=== PATIENT | female | born 1985 | race Caucasian/White ===

== ENCOUNTER 2016-11-19 03:10 | Inpatient (IN) | payer OTHER ==
[~2016-11-19] VITALS: Ht 167.6 cm; Wt 98.0 kg
[2016-11-19] MEDS ORDERED: METHYLERGONOVINE 0.2 MG/ML AMP IM PRN (03:30)
[2016-11-19] MEDS ORDERED: OXYTOCIN 20 UNITS/LR PREMIX 1,000 ML IV SCH (03:30)
[2016-11-19] MEDS ORDERED: OXYTOCIN 10 UNITS/ML VIAL IM SCH (03:30)
[2016-11-19] MEDS ORDERED: LIDOCAINE 1% 500 MG/50 ML VIAL INJ SCH (03:30)
[2016-11-19] MEDS ORDERED: FERR-193 PO (03:48)
[2016-11-19] MEDS ORDERED: PREN-546 PO (03:48)
[2016-11-19 04:09] LABS: BASOPHILS # (AUTO) 0.1 K/uL (0.00-0.22); BASOPHILS % (AUTO) 1.5 % (0.0-2.0); EOSINOPHILS # (AUTO) 0.1 K/uL (0-0.4); EOSINOPHILS % (AUTO) 1.3 % (0.0-4.0); HEMATOCRIT 34.7 % (36-48); HEMOGLOBIN 11.4 g/dL (12.0-16.0); LYMPHOCYTES # (AUTO) 2.5 K/uL (2.5-16.5); LYMPHOCYTES % (AUTO) 32.6 % (20.5-51.1); MEAN CORPUSCULAR HEMOGLOBIN 30 pg (27-31); MEAN CORPUSCULAR HGB CONC 33 g/dL (33-37); MEAN CORPUSCULAR VOLUME 92 fL (80-94); MONOCYTES # (AUTO) 0.7 K/uL (0.8-1.0); NEUTROPHILS # (AUTO) 4.4 K/uL (1.8-7.7); NEUTROPHILS % (AUTO) 55.6 % (42.2-75.2); PLATELET COUNT (AUTO) 184 K/uL (140-450); RED BLOOD CELL COUNT(AUTO) 3.79 MIL/uL (4.20-5.40); RED CELL DISTRIBUTION WIDTH 14.2 % (11.6-13.7); WHITE BLOOD COUNT (AUTO) 7.8 K/uL (4.8-10.8)
[2016-11-19 04:12] LABS: ANION GAP 13.7 (8-16); CARBON DIOXIDE 21.9 mmol/L (21-32); CREATININE 0.7 mg/dL (0.6-1.3); POTASSIUM 3.6 mmol/L (3.5-5.1)
[2016-11-19 04:18] LABS: ALBUMIN 2.8 g/dL (3.4-5.0); MAGNESIUM 1.8 mg/dL (1.8-2.4); TOTAL BILIRUBIN 0.3 mg/dL (0.0-1.0)
[2016-11-19] MEDS ORDERED: CARBOPROST 250 MCG/ML AMP IM SCH (04:20)
[2016-11-19] MEDS ORDERED: NALBUPHINE 10 MG/ML AMP IVP PRN (04:20)
[2016-11-19 04:22] VITALS: BP 121/76
[2016-11-19] MEDS ORDERED: TRA200 PO (04:25)
[2016-11-19] MEDS: LACTATED RINGERS 1,000 ML IV SCH ×2 (04:26→19:56)
[2016-11-19 04:32] LABS: APPEARANCE,URINE CLEAR (CLEAR); BILIRUBIN,URINE NEGATIVE (NEGATIVE); BLOOD, URINE NEGATIVE (NEGATIVE); COLOR,URINE YELLOW (YELLOW); LEUKOCYTE ESTERASE ,URINE NEGATIVE (NEGATIVE); NITRITE, URINE NEGATIVE (NEGATIVE); UGLUCOSE NEGATIVE (NEGATIVE)
[2016-11-19 04:48] LABS: RBC,URINE 0-5 (RARE) /HPF (0-5); WBC,URINE 0-5 (RARE) /HPF (0-5)
[2016-11-19] MEDS ORDERED: OXYTOCIN 20 UNITS/LR PREMIX 1,000 ML IV ONE (08:03)
--- NOTE | 2016-11-19 09:57 | NUR ---
PATIENT HAS BEEN SCREENED AND CATEGORIZED LOW NUTRITION RISK. PATIENT WILL BE SEEN WITHIN 7 DAYS OF ADMISSION. 11/25/[address]
[2016-11-19] MEDS ORDERED: ROPIVACAINE 0.2%/NS PREMIX 250 ML EPI ONE (10:49)
[2016-11-19] MEDS ORDERED: ACETAMINOPHEN EXTRA STRENGTH 500 MG TAB ONE (20:01)
[2016-11-19] MEDS: ACETAMINOPHEN EXTRA STRENGTH 500 MG TAB PO PRN (20:09)
[2016-11-19] MEDS: LABETALOL 200 MG TAB PO SCH (20:59)
[2016-11-19] MEDS ORDERED: LABETALOL 200 MG TAB ONE (21:04)
[2016-11-20] MEDS ORDERED: OXYTOCIN 20 UNITS/LR PREMIX 1,000 ML IV SCH ×2 (03:30→17:28)
[2016-11-20] MEDS ORDERED: ROPIVACAINE 0.2%/NS PREMIX 250 ML EPI ONE (08:36)
[2016-11-20] MEDS: ACETAMINOPHEN EXTRA STRENGTH 500 MG TAB PO PRN (08:44)
[2016-11-20] MEDS: LABETALOL 200 MG TAB PO SCH ×2 (08:44→21:54)
[2016-11-20] MEDS ORDERED: ACETAMINOPHEN EXTRA STRENGTH 500 MG TAB ONE (08:47)
[2016-11-20] MEDS ORDERED: LABETALOL 200 MG TAB ONE ×2 (08:47→21:59)
[2016-11-20] MEDS: LACTATED RINGERS 1,000 ML IV SCH (13:16)
[2016-11-20] MEDS ORDERED: AMPICILLIN 2,000 MG in NACL 0.9% 100 ML IV ONE (13:25)
[2016-11-20] MEDS ORDERED: AMPICILLIN 2,000 MG VIAL ONE (13:32)
[2016-11-20] MEDS ORDERED: OXYTOCIN 10 UNITS/ML VIAL ONE (15:25)
[2016-11-20] MEDS ORDERED: LIDOCAINE 1% 0 ML ONE (15:26)
[2016-11-20] MEDS ORDERED: ACETAMINOPHEN 325 MG TAB PO PRN (17:30)
[2016-11-20] MEDS ORDERED: MEASLES, MUMPS, AND RUBELLA 1 VIAL SQVAC PRN (17:30)
[2016-11-20] MEDS ORDERED: AMPICILLIN 1,000 MG in NACL 0.9% 50 ML IV SCH (18:00)
[2016-11-21 07:58] LABS: BASOPHILS # (AUTO) 0.3 K/uL (0.00-0.22); BASOPHILS % (AUTO) 2.9 % (0.0-2.0); EOSINOPHILS # (AUTO) 0.2 K/uL (0-0.4); EOSINOPHILS % (AUTO) 1.7 % (0.0-4.0); HEMATOCRIT 31.5 % (36-48); HEMOGLOBIN 10.1 g/dL (12.0-16.0); LYMPHOCYTES # (AUTO) 2.8 K/uL (2.5-16.5); LYMPHOCYTES % (AUTO) 29.4 % (20.5-51.1); MEAN CORPUSCULAR HEMOGLOBIN 30 pg (27-31); MEAN CORPUSCULAR HGB CONC 32 g/dL (33-37); MEAN CORPUSCULAR VOLUME 93 fL (80-94); MONOCYTES # (AUTO) 0.8 K/uL (0.8-1.0); MONOCYTES % (AUTO) 8.1 % (1.7-9.3); NEUTROPHILS # (AUTO) 5.3 K/uL (1.8-7.7); NEUTROPHILS % (AUTO) 57.9 % (42.2-75.2); PLATELET COUNT (AUTO) 166 K/uL (140-450); RED CELL DISTRIBUTION WIDTH 14.3 % (11.6-13.7); WHITE BLOOD COUNT (AUTO) 9.4 K/uL (4.8-10.8)
[2016-11-21] MEDS: LABETALOL 200 MG TAB PO SCH ×2 (09:06→20:12)
[2016-11-21] MEDS: BISACODYL 5 MG TABEC PO PRN ×2 (09:06→20:12)
[2016-11-21] MEDS: oxyCODONE/APAP 5/325 MG 1 TAB TAB PO PRN (20:13)
[2016-11-22] MEDS: oxyCODONE/APAP 5/325 MG 1 TAB TAB PO PRN (05:38)
[2016-11-22] MEDS: LABETALOL 200 MG TAB PO SCH (08:36)
[2016-11-22] MEDS ORDERED: ACET-2619 PO (15:17)
== END 2016-11-22 17:55 | disposition home or self-care (01) | DRG 560 ==
LOC: MLD 03:10 → MFCC 11-20 20:20
PROVIDERS: ADMIT Obstetrics & Gynecology; ATTEND Obstetrics & Gynecology
PROC: 10E0XZZ Delivery of Products of Conception, External Approach (ICD-10-PCS; 2016-11-20)
PROC: 00HU33Z Insertion of Infusion Device into Spinal Canal, Percutaneous Approach (ICD-10-PCS; 2016-11-20)
PROC: 3E0R3CZ (ICD-10-PCS; 2016-11-20)
PROC: 3E0234Z Introduction of Serum, Toxoid and Vaccine into Muscle, Percutaneous Approach (ICD-10-PCS; principal; 2016-11-21)
DX: O13.3 Gestational [pregnancy-induced] hypertension without significant proteinuria, third trimester (principal); O69.1XX0 Labor and delivery complicated by cord around neck, with compression, not applicable or unspecified; Z37.0 Single live birth; Z3A.38 38 weeks gestation of pregnancy; Z23 Encounter for immunization
CPT/HCPCS: 36415; 51702; 59409; 76815; 80053; 81001; 83735; 85025; 85384; 85610; 85730; 86592; 86886; 86900; 86901; 90715; J0290; J2001; J2590; J2795; J7120; Q0092

== ENCOUNTER 2017-11-03 18:33 | Inpatient (IN) | payer OTHER ==
[~2017-11-03] VITALS: Ht 165.1 cm; Wt 93.4 kg
[~2017-11-03 18:33] MED LIST: ACET-2619 PO; FERR-15 PO; PREN-546 PO; TRA200 PO
[2017-11-03] MEDS ORDERED: LACTATED RINGERS 1,000 ML IV SCH (19:31)
[2017-11-03] MEDS ORDERED: OXYTOCIN 20 UNITS in LACTATED RINGERS 1,000 ML IV SCH (19:34)
[2017-11-03] MEDS ORDERED: OXYTOCIN 10 UNITS/ML VIAL IM SCH (19:35)
[2017-11-03] MEDS ORDERED: CARBOPROST 250 MCG/ML AMP IM PRN ×2 (19:35→20:33)
[2017-11-03] MEDS ORDERED: NALBUPHINE 10 MG/ML AMP IVP PRN ×2 (19:35)
[2017-11-03] MEDS ORDERED: METHYLERGONOVINE 0.2 MG/ML AMP IM PRN (19:35)
[2017-11-03] MEDS ORDERED: PROMETHAZINE 25 MG/ML VIAL IVP PRN (19:35)
[2017-11-03] MEDS ORDERED: TRA200 PO (19:36)
[2017-11-03 19:54] VITALS: BP 117/68
[2017-11-03] MEDS ORDERED: MISOPROSTOL 25 MCG TAB VG SCH (20:00)
[2017-11-03 20:05] LABS: BASOPHILS % (AUTO) 0.3 % (0.0-2.0); EOSINOPHILS # (AUTO) 0.1 K/uL (0-0.4); HEMATOCRIT 35.1 % (36-48); HEMOGLOBIN 11.6 g/dL (12.0-16.0); LYMPHOCYTES # (AUTO) 2.1 K/uL (2.5-16.5); LYMPHOCYTES % (AUTO) 27.3 % (20.5-51.1); MEAN CORPUSCULAR HEMOGLOBIN 31 pg (27-31); MEAN CORPUSCULAR HGB CONC 33 g/dL (33-37); MEAN CORPUSCULAR VOLUME 93.3 fL (80-94); MONOCYTES # (AUTO) 0.5 K/uL (0.8-1.0); MONOCYTES % (AUTO) 6.4 % (1.7-9.3); PLATELET COUNT (AUTO) 181 K/uL (140-450); RED BLOOD CELL COUNT(AUTO) 3.76 MIL/uL (4.20-5.40); RED CELL DISTRIBUTION WIDTH 14.7 % (11.6-13.7); WHITE BLOOD COUNT (AUTO) 7.7 K/uL (4.8-10.8)
[2017-11-03 20:13] LABS: APPEARANCE,URINE CLEAR (CLEAR); BILIRUBIN,URINE NEGATIVE (NEGATIVE); BLOOD, URINE TRACE-I (NEGATIVE); COLOR,URINE YELLOW (YELLOW); LEUKOCYTE ESTERASE ,URINE 2+ (NEGATIVE); NITRITE, URINE NEGATIVE (NEGATIVE); PH,URINE 5.5 (5.0-9.0); UGLUCOSE NEGATIVE (NEGATIVE)
[2017-11-03 20:25] LABS: RBC,URINE 3-10 (FEW) /HPF (0-5)
[2017-11-03 20:30] LABS: ALBUMIN 2.9 g/dL (3.4-5.0); ANION GAP 14.1 (8-16); CARBON DIOXIDE 23.4 mmol/L (21-32); CREATININE 0.7 mg/dL (0.6-1.3); POTASSIUM 3.5 mmol/L (3.5-5.1); TOTAL BILIRUBIN 0.4 mg/dL (0.0-1.0)
[2017-11-03] MEDS: LABETALOL 100 MG TAB ONE (22:14)
[2017-11-03] MEDS: LABETALOL 100 MG TAB PO SCH (22:16)
[2017-11-03] MEDS ORDERED: LABETALOL 100 MG TAB PO SCH (22:30)
[2017-11-04] MEDS ORDERED: OXYTOCIN 20 UNITS/LR PREMIX 1,000 ML IV ONE (05:54)
[2017-11-04] MEDS ORDERED: LIDOCAINE MPF 1% - 5 mL VIAL 0 ML ONE (08:00)
[2017-11-04] MEDS: LABETALOL 100 MG TAB PO SCH ×2 (08:53→21:00)
[2017-11-04] MEDS ORDERED: LABETALOL 100 MG TAB ONE (08:55)
--- NOTE | 2017-11-04 09:37 | NUR ---
PATIENT HAS BEEN SCREENED AND CATEGORIZED LOW NUTRITION RISK. PATIENT WILL BE SEEN WITHIN 7 DAYS OF ADMISSION. 11/10/[address]
[2017-11-04] MEDS ORDERED: OXYTOCIN 10 UNITS/ML VIAL ONE (10:55)
[2017-11-04] MEDS ORDERED: MEASLES, MUMPS, AND RUBELLA 1 VIAL SQVAC PRN (11:35)
[2017-11-04] MEDS ORDERED: ACETAMINOPHEN 325 MG TAB PO PRN (11:35)
[2017-11-04] MEDS ORDERED: TERBUTALINE 1 MG/ML VIAL SUBQ ONE (14:21)
[2017-11-04] MEDS: LABETALOL 100 MG TAB ONE (21:25)
[2017-11-05 08:29] LABS: BASOPHILS # (AUTO) 0.1 K/uL (0.00-0.22); BASOPHILS % (AUTO) 1.2 % (0.0-2.0); EOSINOPHILS # (AUTO) 0.1 K/uL (0-0.4); HEMATOCRIT 31.5 % (36-48); HEMOGLOBIN 10.7 g/dL (12.0-16.0); LYMPHOCYTES # (AUTO) 2.6 K/uL (2.5-16.5); LYMPHOCYTES % (AUTO) 26.9 % (20.5-51.1); MEAN CORPUSCULAR HEMOGLOBIN 32 pg (27-31); MEAN CORPUSCULAR HGB CONC 34 g/dL (33-37); MEAN CORPUSCULAR VOLUME 93.3 fL (80-94); MONOCYTES # (AUTO) 0.6 K/uL (0.8-1.0); MONOCYTES % (AUTO) 6.3 % (1.7-9.3); NEUTROPHILS # (AUTO) 6.3 K/uL (1.8-7.7); NEUTROPHILS % (AUTO) 64.6 % (42.2-75.2); PLATELET COUNT (AUTO) 158 K/uL (140-450); RED BLOOD CELL COUNT(AUTO) 3.38 MIL/uL (4.20-5.40); RED CELL DISTRIBUTION WIDTH 14.7 % (11.6-13.7); WHITE BLOOD COUNT (AUTO) 9.7 K/uL (4.8-10.8)
[2017-11-05] MEDS: LABETALOL 100 MG TAB PO SCH ×2 (09:00→21:09)
[2017-11-05] MEDS: IBUPROFEN 600 MG TAB PO PRN (11:41)
[2017-11-06] MEDS: LABETALOL 100 MG TAB PO SCH (07:57)
[2017-11-06] MEDS: IBUPROFEN 600 MG TAB PO PRN (07:58)
== END 2017-11-06 14:50 | disposition home or self-care (01) | DRG 560 ==
LOC: MLD 18:33 → MFCC 11-04 14:38
PROVIDERS: ADMIT Obstetrics & Gynecology; ATTEND Obstetrics & Gynecology
PROC: 10E0XZZ Delivery of Products of Conception, External Approach (ICD-10-PCS; principal; 2017-11-04)
PROC: 10907ZC Drainage of Amniotic Fluid, Therapeutic from Products of Conception, Via Natural or Artificial Opening (ICD-10-PCS; 2017-11-04)
DX: O10.92 Unspecified pre-existing hypertension complicating childbirth (principal); Z37.0 Single live birth; Z3A.38 38 weeks gestation of pregnancy
CPT/HCPCS: 36415; 59409; 76815; 80053; 81001; 85025; 86592; 86886; 86900; 86901; J2001; J2590; J3105; J7120; Q0092

== ENCOUNTER 2019-09-24 18:59 | Observation (INO) | payer OTHER ==
[~2019-09-24] VITALS: Ht 167.6 cm; Wt 94.3 kg
== END 2019-09-24 21:45 | disposition home or self-care (01) ==
LOC: MFCC 18:59
PROVIDERS: ADMIT Obstetrics & Gynecology; ATTEND Obstetrics & Gynecology
DX: U07.1 COVID-19 (principal); O98.513 Other viral diseases complicating pregnancy, third trimester; O32.1XX0 Maternal care for breech presentation, not applicable or unspecified; O42.913 Preterm premature rupture of membranes, unspecified as to length of time between rupture and onset of labor, third trimester; O09.523 Supervision of elderly multigravida, third trimester; Z3A.36 36 weeks gestation of pregnancy
CPT/HCPCS: 76815; 81000; G0378; Q0092; U0003

== ENCOUNTER 2019-10-08 18:36 | Emergency (ER) | payer OTHER, SELFPAY ==
[~2019-10-08] VITALS: Ht 167.6 cm; Wt 95.3 kg
[2019-10-08 19:26] VITALS: BP 118/73
--- NOTE | 2019-10-08 19:26 | NUR ---
COVID-19 SWAB COLLECTED
--- NOTE | 2019-10-08 20:40 | NUR ---
Patient discharged with v/s stable. Written and verbal after care instructions given and explained. Patient verbalized understanding. Ambulatory with steady gait. All questions addressed prior to discharge. Advised to follow up with PMD.
--- NOTE | 2019-10-10 16:55 | NUR ---
COVID RESULTS RECEIVED FROM LAB. COVID RESULTS POSITIVE. COPY OF RESULT PLACED IN INFECTION CONTROL'S MAILBOX.
== END 2019-10-08 20:40 | disposition home or self-care (01) ==
LOC: MED 18:36 → EEVIPCON 18:36 → MED 20:40
DX: U07.1 COVID-19 (principal); Z79.899 Other long term (current) drug therapy
CPT/HCPCS: 99283; U0003

== ENCOUNTER 2019-11-07 15:07 | Outpatient (CLI) | payer OTHER, SELFPAY | END 2019-11-07 21:34 | disposition home or self-care (01) | LOC: MLB 15:07 | PROVIDERS: ATTEND Obstetrics & Gynecology | DX: Z11.59 Encounter for screening for other viral diseases (principal) | CPT/HCPCS: U0003-CS ==

== ENCOUNTER 2019-11-15 10:38 | Outpatient (CLI) | payer OTHER, SELFPAY | END 2019-11-15 20:44 | disposition home or self-care (01) | LOC: MLB 10:38 | PROVIDERS: ATTEND Obstetrics & Gynecology | DX: Z11.59 Encounter for screening for other viral diseases (principal) | CPT/HCPCS: U0003-CS ==

== ENCOUNTER 2019-12-24 14:21 | Observation (INO) | payer OTHER ==
[~2019-12-24] VITALS: Ht 167.6 cm; Wt 97.1 kg
== END 2019-12-24 17:10 | disposition home or self-care (01) ==
LOC: MLD 14:21 → EEVIPCON 14:21
PROVIDERS: ADMIT Obstetrics & Gynecology; ATTEND Obstetrics & Gynecology
DX: O26.893 Other specified pregnancy related conditions, third trimester (principal); Z20.828 Contact with and (suspected) exposure to other viral communicable diseases; R10.9 Unspecified abdominal pain; Z86.19 Personal history of other infectious and parasitic diseases; Z3A.38 38 weeks gestation of pregnancy
CPT/HCPCS: 59025; 76805; 81000; 87426; G0378; Q0092

== ENCOUNTER 2020-04-04 17:24 | Emergency (ER) | payer OTHER ==
[~2020-04-04] VITALS: Ht 170.2 cm; Wt 80.7 kg
[~2020-04-04 17:24] MED LIST changes: -ACET-2619 PO; -FERR-15 PO; -TRA200 PO
[2020-04-04 17:27] VITALS: BP 126/88
--- NOTE | 2020-04-04 17:49 | NUR ---
34 Y/O FEMALE PRESENTS WITH LEFT WRIST PAIN AND SWELLING S/P FALLING ABOUT AN HOUR AGO. CMS+, PT UNABLE TO FLEX WRIST WITHOUT SEVERE PAIN. CAP REFILL <3. RADIAL PULSES PRESENT AT THIS TIME. SKIN IS COOL/DRY/IN TACT.
[2020-04-04] MEDS ORDERED: IBUPROFEN 600 MG TAB PO ONE (18:10)
--- NOTE | 2020-04-04 18:12 | NUR ---
3 inch orthoglass used for left arm sugartong splint. Patient was also given sling, adjusted and fitted appropriately for patient. [facility] and [facility]NL.
[2020-04-04 18:17] VITALS: BP 126/88
== END 2020-04-04 18:17 | disposition home or self-care (01) ==
LOC: MED 17:24
DX: S52.572A Other intraarticular fracture of lower end of left radius, initial encounter for closed fracture (principal); W19.XXXA Unspecified fall, initial encounter; Y93.51 Activity, roller skating (inline) and skateboarding; Y92.89 Other specified places as the place of occurrence of the external cause; Y99.8 Other external cause status
CPT/HCPCS: 73110; 99283

== ENCOUNTER 2020-04-10 23:19 | Emergency (ER) | payer OTHER ==
[~2020-04-10] VITALS: Ht 167.6 cm; Wt 86.2 kg
[2020-04-10 23:25] VITALS: BP 136/83
--- NOTE | 2020-04-10 23:28 | NUR ---
TO LOBBY A/W BED AMBULATORY
--- NOTE | 2020-04-11 00:30 | NUR ---
SEEN AND EXAMINED BY COLBY WITH ORDER, CARRIED OUT
[2020-04-11 01:45] VITALS: BP 119/79
--- NOTE | 2020-04-11 01:45 | NUR ---
Patient discharged with v/s stable. Written and verbal after care instructions given and explained. Patient alert, oriented and verbalized understanding of instructions. Ambulatory with steady gait. All questions addressed prior to discharge. ID band removed. Patient advised to follow up with PMD. . Patient educated on indication of medication including possible reaction and side effects. Opportunity to ask questions provided and answered.
== END 2020-04-11 01:45 | disposition home or self-care (01) ==
LOC: MED 23:19
DX: S52.592P Other fractures of lower end of left radius, subsequent encounter for closed fracture with malunion (principal); X58.XXXD Exposure to other specified factors, subsequent encounter
CPT/HCPCS: 99283

== ENCOUNTER 2022-07-18 13:34 | Emergency (ER) | payer OTHER ==
[~2022-07-18] VITALS: Ht 177.8 cm; Wt 79.4 kg
[2022-07-18 13:50] VITALS: BP 173/111
[2022-07-18] MEDS ORDERED: NAPR-1704 PO (14:27)
[2022-07-18] MEDS ORDERED: KETOROLAC 30 MG/ML VIAL IM ONE (14:30)
[2022-07-18 14:40] VITALS: BP 153/101
== END 2022-07-18 14:40 | disposition home or self-care (01) ==
LOC: MED 13:34
DX: S86.812A Strain of other muscle(s) and tendon(s) at lower leg level, left leg, initial encounter (principal); W01.0XXA Fall on same level from slipping, tripping and stumbling without subsequent striking against object, initial encounter; Y93.89 Activity, other specified; Y92.89 Other specified places as the place of occurrence of the external cause; Y99.8 Other external cause status
CPT/HCPCS: 96372; 99283; J1885

== ENCOUNTER 2022-08-17 14:16 | Emergency (ER) | payer OTHER ==
[~2022-08-17] VITALS: Ht 167.6 cm; Wt 92.5 kg
[~2022-08-17 14:16] MED LIST changes: +NAPR-1704 PO
[2022-08-17 14:25] VITALS: BP 140/90
--- NOTE | 2022-08-17 14:31 | NUR ---
36YO FEMALE PT C/O N/V/D-blood AND INTERMITTENT SHARP ABD PAIN X4DAYS. REPORTS ONSET AFTER [facility]ING [facility] OVER THE WEEK[facility]. ABD NON TENDER OR DISTENDED. SON W/ S/S. DENIES FEVER, CHILLS, CHEST PAIN OR TAKING MEDICATION. PT AAOX4, HOB POSITIONED PER COMFORT HX:DENIES NKA
--- NOTE | 2022-08-17 14:38 | NUR ---
MD LEES AT BEDSIDE FOR EVALUATION
[2022-08-17] MEDS ORDERED: NACL 0.9% 1,000 ML IV ONE (14:45)
[2022-08-17] MEDS ORDERED: ONDANSETRON 4 MG/2 ML VIAL IVP ONE (14:45)
--- NOTE | 2022-08-17 14:51 | NUR ---
lab at bedside
[2022-08-17 15:00] LABS: BASOPHILS # (AUTO) 0.1 K/uL (0.00-0.22); BASOPHILS % (AUTO) 0.8 % (0.0-2.0); EOSINOPHILS # (AUTO) 0.2 K/uL (0-0.4); EOSINOPHILS % (AUTO) 2.8 % (0.0-4.0); HEMATOCRIT 35.7 % (36-48); HEMOGLOBIN 11.9 g/dL (12.0-16.0); LYMPHOCYTES # (AUTO) 3.6 K/uL (2.5-16.5); LYMPHOCYTES % (AUTO) 43.8 % (20.5-51.1); MEAN CORPUSCULAR HEMOGLOBIN 30 pg (27-31); MEAN CORPUSCULAR HGB CONC 33 g/dL (33-37); MEAN CORPUSCULAR VOLUME 89.3 fL (80-94); MONOCYTES # (AUTO) 0.8 K/uL (0.8-1.0); MONOCYTES % (AUTO) 9.3 % (1.7-9.3); NEUTROPHILS # (AUTO) 3.5 K/uL (1.8-7.7); NEUTROPHILS % (AUTO) 43.3 % (42.2-75.2); PLATELET COUNT (AUTO) 315 K/uL (140-450); RED CELL DISTRIBUTION WIDTH 14.8 % (11.6-13.7); WHITE BLOOD COUNT (AUTO) 8.2 K/uL (4.8-10.8)
[2022-08-17 15:14] LABS: ALBUMIN 3.6 g/dL (3.4-5.0); ANION GAP 12.9 (8-16); CARBON DIOXIDE 27.8 mmol/L (21-32); CREATININE 0.8 mg/dL (0.6-1.3); POTASSIUM 3.7 mmol/L (3.5-5.1); TOTAL BILIRUBIN 0.4 mg/dL (0.0-1.0)
[2022-08-17] MEDS ORDERED: METO-485 PO (15:50)
--- NOTE | 2022-08-17 15:55 | NUR ---
IV removed, catheter intact and site benign. Applied folded 4x4 gauze and tape to stop bleeding.
--- NOTE | 2022-08-17 15:58 | NUR ---
Patient discharged with v/s stable. Written and verbal after care instructions FOR VIRAL GASTROENTERITIS given and explained. Patient alert, oriented and verbalized understanding of instructions. Ambulatory with steady gait. All questions addressed prior to discharge. ID band removed. Patient advised to follow up with PMD. Rx of REGLAN given. Opportunity to ask questions provided and answered.
--- NOTE | 2022-08-17 16:06 | NUR ---
The patient's care was reviewed and supervised by Laura Kovacs RN.
== END 2022-08-17 15:58 | disposition home or self-care (01) ==
LOC: MED 14:16
DX: A08.4 Viral intestinal infection, unspecified (principal); Z79.899 Other long term (current) drug therapy
CPT/HCPCS: 36415; 80053; 83690; 85025; 96361; 96374; 99283; J2405; J7030

== ENCOUNTER 2023-12-26 09:22 | Emergency (ER) | payer OTHER ==
[~2023-12-26] VITALS: Ht 167.6 cm; Wt 95.3 kg
[~2023-12-26 09:22] MED LIST changes: +METO-485 PO
[2023-12-26 09:28] VITALS: BP 154/83; PULSE 82; RESP 22; TEMP 98.7; O2SAT 99
[2023-12-26 11:09] LABS: BASOPHILS # (AUTO) 0.1 K/uL (0.00-0.22); BASOPHILS % (AUTO) 0.9 % (0.0-2.0); EOSINOPHILS # (AUTO) 0.2 K/uL (0-0.4); EOSINOPHILS % (AUTO) 2.7 % (0.0-4.0); HEMATOCRIT 34.5 % (36-48); HEMOGLOBIN 11.6 g/dL (12.0-16.0); LYMPHOCYTES # (AUTO) 2.4 K/uL (2.5-16.5); LYMPHOCYTES % (AUTO) 37.5 % (20.5-51.1); MEAN CORPUSCULAR HEMOGLOBIN 30 pg (27-31); MEAN CORPUSCULAR HGB CONC 34 g/dL (33-37); MEAN CORPUSCULAR VOLUME 89.5 fL (80-94); MONOCYTES # (AUTO) 0.6 K/uL (0.8-1.0); MONOCYTES % (AUTO) 9.4 % (1.7-9.3); NEUTROPHILS # (AUTO) 3.2 K/uL (1.8-7.7); NEUTROPHILS % (AUTO) 49.5 % (42.2-75.2); PLATELET COUNT (AUTO) 238 K/uL (140-450); RED BLOOD CELL COUNT(AUTO) 3.86 MIL/uL (4.20-5.40); RED CELL DISTRIBUTION WIDTH 14.7 % (11.6-13.7); WHITE BLOOD COUNT (AUTO) 6.5 K/uL (4.8-10.8)
[2023-12-26 11:17] LABS: ANION GAP 9.6 (8-16); CALCIUM 8.9 mg/dL (8.5-10.1); CARBON DIOXIDE 27.9 mmol/L (21-32); CREATININE 0.7 mg/dL (0.6-1.3); POTASSIUM 3.5 mmol/L (3.5-5.1)
[2023-12-26 11:23] LABS: COLOR,URINE YELLOW (YELLOW); PH,URINE 5.5 (5.0-9.0); PROTEIN,URINE 1+ (NEGATIVE)
[2023-12-26 11:24] LABS: BILIRUBIN,URINE NEGATIVE (NEGATIVE); BLOOD, URINE 3+ (NEGATIVE); LEUKOCYTE ESTERASE ,URINE NEGATIVE (NEGATIVE); UGLUCOSE NEGATIVE (NEGATIVE); UROBILINOGEN,URINE 0.2 EU/dL (0.2 - 1)
[2023-12-26 11:29] LABS: RBC,URINE 20-50 /HPF (0-5); SQUAMOUS EPITHELIAL CELL,UR 4-10 (MOD) /LPF (0-3 (FEW)); WBC,URINE 0-5 /HPF (0-5)
[2023-12-26 11:30] LABS: BACTERIA,URINE 1+ /HPF (None Seen); NITRITE, URINE POSITIVE (NEGATIVE)
[2023-12-26 11:31] LABS: APPEARANCE,URINE HAZY (CLEAR)
[2023-12-26] MEDS ORDERED: CEPH-588 PO (13:29)
[2023-12-26 13:45] VITALS: BP 154/83; PULSE 82; RESP 22; TEMP 98.7; O2SAT 99
== END 2023-12-26 13:45 | disposition home or self-care (01) ==
LOC: MED 09:22
DX: O20.0 Threatened abortion (principal); O23.91 Unspecified genitourinary tract infection in pregnancy, first trimester; R82.71 Bacteriuria; Z3A.11 11 weeks gestation of pregnancy; Z79.899 Other long term (current) drug therapy
CPT/HCPCS: 36415; 76801; 80048; 81001; 84702; 85025; 86900; 86901; 87086; 99284; Q0092